=== PATIENT | male | born 1965 | race Two or more races ===

== ENCOUNTER 2019-07-03 13:10 | Inpatient (IN) | payer OTHER ==
[2019-07-03 14:31] VITALS: BMI 27.0
--- NOTE | 2019-07-03 15:44 | HP ---
CIWA Score Nausea/Vomitin-No Nausea/No Vomiting Muscle Tremors: 5 Anxiety: 2 Agitation: 0-Normal Activity Paroxysmal Sweats: 2 Orientation: 0-Oriented Tacttile Disturbances: 2-Mild Itch/Numbness/Burn Auditory Disturbances: 0-None Visual Disturbances: 1-Very Mild Sensitivity Headache: 1-Very Mild CIWA-Ar Total Score: 13 - Admission Criteria OASAS Guidelines: Admission for Medically Managed Detox: Requires at least one of the followin. CIWA greater than 12 2. Seizures within the past 24 hours 3. Delirium tremens within the past 24 hours 4. Hallucinations within the past 24 hours 5. Acute intervention needed for co occurring medical disorder 6. Acute intervention needed for co occurring psychiatric disorder 7. Severe withdrawal that cannot be handled at a lower level of care (continued vomiting, continued diarrhea, abnormal vital signs) requiring intravenous medication and/or fluids 8. Patient presents the following: CIWA greater than 12 Admission Criteria Met: Admission criteria met Admission ROS S - [facility] Chief Complaint: alcohol withdrawal symptoms Allergies/Adverse Reactions: Allergies Allergy/AdvReac Type Severity Reaction Status Date / Time No Known Allergies Allergy Verified 07/03/19 14:05 History of Present Illness: Patient is 53 yo male arab speaking, is here for inpatient alcohol detox d/t JOSEE c/o of hand tremors, referred from [facility] after evaluated today for chest pain with negative chest x-ray and troponin. Patient reports hx of HTN, DM II, HDL, GERD, RLE neuropathy. Psyhc: Denies. Exam Limitations: No Limitations - Ebola screening Have you traveled outside of the country in the last 21 days: No Have you had contact with anyone from an Ebola affected area: No Do you have a fever: No - Review of Systems Constitutional: Chills, Loss of Appetite, Changes in sleep, Weakness EENT: reports: No Symptoms Reported Respiratory: reports: No Symptoms reported Cardiac: reports: No Symptoms Reported GI: reports: Poor Appetite, Poor Fluid Intake, Indigestion : reports: No Symptoms Reported Musculoskeletal: reports: No Symptoms Reported Integumentary: reports: No Symptoms Reported Neuro: reports: Numbness (Right Lower extremity chronic), Dizziness Endocrine: reports: No Symptoms Reported Hematology: reports: No Symptoms Reported Psychiatric: reports: Orientated x3, Anxious Other Systems: Reviewed and Negative Patient History - Patient Medical History Hx Anemia: No Hx Asthma: No Hx Chronic Obstructive Pulmonary Disease (COPD): No Hx Cancer: No Hx Cardiac Disorders: Yes (hx of Chest pain last eval 07/03/19) Hx Congestive Heart Failure: No Hx Hypertension: Yes Hx Hypercholesterolemia: Yes Hx Pacemaker: No HX Cerebrovascular Accident: No Hx Seizures: No Hx Dementia: No Hx Diabetes: Yes Hx Gastrointestinal Disorders: Yes (GERD) Hx Liver Disease: No Hx Genitourinary Disorders: No Hx Sexually Transmitted Disorders: No Hx Renal Disease (ESRD): No Hx Thyroid Disease: No Hx Human Immunodeficiency Virus (HIV): No Hx Hepatitis C: No Hx Depression: No Hx Suicide Attempt: No Hx Bipolar Disorder: No Hx Schizophrenia: No - Patient Surgical History Past Surgical History: No - PPD History Previous Implant?: No (Negative Chest X-ray [facility] 07/03/19) Documented Results: Negative w/o proof PPD to be Administered?: No - Smoking Cessation Smoking history: Never smoked Have you smoked in the past 12 months: No Hx Chewing Tobacco Use: No Initiated information on smoking cessation: No - Substance & Tx. History Hx Alcohol Use: Yes Hx Substance Use: Yes Substance Use Type: Alcohol Hx Substance Use Treatment: No - Substances abused Alcohol Substance route: Oral Frequency: Daily Amount used: 4 - 6 shots whiskey Age of first use: 20 Date of last use: 07/02/19 Family Disease History - Family Disease History Family History: Unable to Obtain Admission Physical Exam BHS - Vital Signs Vital Signs: Vital Signs - 24 hr 07/03/19 07/03/19 14:08 15:07 Temperature 98.9 F 98.9 F Pulse Rate 104 H 104 H Respiratory 18 18 Rate Blood Pressure 188/121 H 188/121 H - Physical General Appearance: Yes: Appropriately Dressed, Moderate Distress, Alcohol on Breath, Tremorous, Sweating HEENTM: Yes: EOMI, Hearing grossly Normal, Normal ENT Inspection, Normocephalic , Normal Voice, CLARISSE, Pharynx Normal, Tm's normal Respiratory: Yes: Chest Non-Tender, Lungs Clear, Normal Breath Sounds, No Respiratory Distress, No Accessory Muscle Use Neck: Yes: Within Normal Limits Breast: Yes: Breast Exam Deferred Cardiology: Yes: Regular Rhythm, Tachycardia Abdominal: Yes: Normal Bowel Sounds, Non Tender, Flat, Soft Genitourinary: Yes: Within Normal Limits Back: Yes: Normal Inspection Musculoskeletal: Yes: Within Normal Limits Extremities: Yes: Normal Capillary Refill, Normal Inspection, Normal Range of Motion, Non-Tender Neurological: Yes: lubricating engineer II-XII NML intact, Fully Oriented, Alert, Motor Strength 5/5 Integumentary: Yes: Normal Color, Dry, Warm, Diaphoresis Lymphatic: Yes: Within Normal Limits - Diagnostic (1) Alcohol dependence with uncomplicated withdrawal Current Visit: Yes Status: Acute (2) Diabetes mellitus treated with insulin Current Visit: Yes Status: Chronic (3) Essential (primary) hypertension Current Visit: Yes Status: Chronic (4) Gastro-esophageal reflux disease without esophagitis Current Visit: Yes Status: Chronic (5) Neuropathy Current Visit: Yes Status: Chronic Cleared for Admission S - Detox or Rehab S Level of Care: Medically Managed Detox Regimen/Protocol: Librium Breathalyzer - Breathalyzer Breathalyzer: 0.022 Urine Drug Screen - Test Device Lot number: [id number] Expiration date: 03/25/21 - Control Is test valid?: Yes - Results Drug screen NEGATIVE: Yes Inpatient Rehab Admission - Rehab Decision to Admit Inpatient rehab admission?: No
[2019-07-03] MEDS ORDERED: MAG HYDROX/AL HYDROX/SIMETH 30 ML UNIT-DOSE CUP PO PRN (15:58)
[2019-07-03] MEDS ORDERED: MAGNESIUM HYDROX 2400MG/30ML ORAL SUSPENSION 30 ML CUP PO PRN (15:58)
[2019-07-03] MEDS ORDERED: IBUPROFEN 400 MG TABLET (FP) PO PRN (15:58)
[2019-07-03] MEDS ORDERED: MENTHOL/PHENOL 1 EACH UD MM PRN (15:58)
[2019-07-03] MEDS ORDERED: BACLOFEN 10 MG TABLET (FP) PO PRN (15:58)
[2019-07-03] MEDS ORDERED: BISMUTH SUBSALICYLATE 524 MG/30 ML UD PO PRN (15:58)
[2019-07-03] MEDS ORDERED: MAGNESIUM CITRATE 300 ML BOTTLE PO PRN (15:58)
[2019-07-03] MEDS ORDERED: INSULIN SLIDING SCALE (NOVOLOG) 1 VIAL SQ SCH (16:30)
[2019-07-03] MEDS: chlordiazePOXIDE HCL 25 MG CAPSULE PO SCH ×2 (17:31→22:37)
[2019-07-03] MEDS: INSULIN SLIDING SCALE (NOVOLOG) 1 VIAL SQ SCH (17:34)
[2019-07-03] MEDS ORDERED: cloNIDine HCL 0.1 MG TABLET PO ONE (18:00)
[2019-07-03] MEDS: chlordiazePOXIDE HCL 25 MG CAPSULE PO PRN (21:00)
[2019-07-03] MEDS: THIAMINE HCL 100 MG TABLET (FP) PO SCH (22:38)
[2019-07-03] MEDS: INSULIN (LEVEMIR) 100 UNITS/ML UNITS SQ SCH (22:40)
[2019-07-04] MEDS: chlordiazePOXIDE HCL 25 MG CAPSULE PO SCH ×4 (06:20→23:07)
[2019-07-04] MEDS: INSULIN SLIDING SCALE (NOVOLOG) 1 VIAL SQ SCH ×3 (08:03→17:11)
--- NOTE | 2019-07-04 09:50 | PN ---
S CIWA - CIWA Score Nausea/Vomitin-No Nausea/No Vomiting Muscle Tremors: 3 Anxiety: 1-Mildly Anxious Agitation: 1-Slight > Activity Paroxysmal Sweats: No Perspiration Orientation: 0-Oriented Tacttile Disturbances: 1-Very Mild Itch/Numbness Auditory Disturbances: 0-None Visual Disturbances: 0-None Headache: 0-None Present CIWA-Ar Total Score: 6 BHS Progress Note (SOAP) Subjective: Patient seen in bed still quite sleepy. Patient had no requests and felt well and slept well. Objective: 07/04/19 09:49 Vitals: BP: 138/82 P: 80/min R:18/min T98.6F Laboratory 07/03/19 07/03/19 07/04/19 15:54 22:34 06:56 POC Glucometer 264 UNITS UNITS 295 UNITS UNITS 82 UNITS UNITS (80-120) (80-120) (80-120) 07/04/19 09:50 Other labs pending results. Assessment: 07/04/19 09:51 1. Alcohol withdrawal 2. Diabetes Plan: 1. Alcohol withdrawals : Feeling quite well despite initial phases of detox protocol. Continue detox 2. DM: Early finger stick glucoses were high but now normalizing. Continue to monitor and do coverage. Dr. Aguirre
[2019-07-04] MEDS: LOSARTAN POTASSIUM 50 MG TABLET (FP) PO SCH (10:24)
[2019-07-04] MEDS: PRENATAL VITAMINS W/ FOLIC ACID TABLET (FP) PO SCH (10:24)
[2019-07-04] MEDS: ASPIRIN 81 MG CHEWABLE TABLETS PO SCH (10:24)
[2019-07-04] MEDS: PANTOPRAZOLE 40 MG TABLET (FP) PO SCH (10:25)
[2019-07-04 10:50] LABS: HEMATOCRIT 31.9 % (35.4-49); MCH 34.7 pg (25.7-33.7); MCHC 34.4 g/dl (32.0-35.9); MEAN CELL VOLUME 100.8 fl (80-96); MEAN PLT VOLUME 7.3 fl (7.5-11.1); PLATELET COUNT 188 K/MM3 (134-434); RBC 3.16 M/mm3 (4.00-5.60); RDW 14.6 % (11.9-15.9); WHITE BLOOD COUNT 4.1 K/mm3 (4.0-10.0)
[2019-07-04 11:10] LABS: ALBUMIN 3.8 g/dl (3.4-5.0); BILIRUBIN,TOTAL 1.1 mg/dL (0.2-1); BLOOD UREA NITROGEN 7.1 mg/dL (7-18); CALCIUM 8.6 mg/dL (8.5-10.1); CREATININE 1.1 mg/dL (0.55-1.3); POTASSIUM 3.9 mmol/L (3.5-5.1)
--- NOTE | 2019-07-04 13:47 | EKG ---
Test Reason : Blood Pressure : / mmHG Vent. Rate : 088 BPM Atrial Rate : 088 BPM P-R Int : 134 ms QRS Dur : 088 ms QT Int : 372 ms P-R-T Axes : 043 017 027 degrees QTc Int : 450 ms NORMAL SINUS RHYTHM NO PREVIOUS ECGS AVAILABLE Confirmed by SHANDA BONNER MD ([id number]) on 07/04/2019 1:46:58 PM Referred By: Confirmed By:SHANDA BONNER MD
[2019-07-04] MEDS ORDERED: INSULIN SLIDING SCALE (NOVOLOG) 1 VIAL SQ ONE (17:14)
[2019-07-04] MEDS: chlordiazePOXIDE HCL 25 MG CAPSULE PO PRN (20:06)
[2019-07-04] MEDS ORDERED: cloNIDine HCL 0.1 MG TABLET PO ONE (20:10)
[2019-07-04] MEDS: THIAMINE HCL 100 MG TABLET (FP) PO SCH (23:07)
[2019-07-04] MEDS: MELATONIN 5 MG TABLETS PO PRN (23:07)
[2019-07-04] MEDS: INSULIN (LEVEMIR) 100 UNITS/ML UNITS SQ SCH (23:08)
[2019-07-05] MEDS: chlordiazePOXIDE HCL 25 MG CAPSULE PO SCH ×4 (05:57→23:23)
[2019-07-05] MEDS: INSULIN SLIDING SCALE (NOVOLOG) 1 VIAL SQ SCH ×3 (06:59→17:09)
[2019-07-05] MEDS: PRENATAL VITAMINS W/ FOLIC ACID TABLET (FP) PO SCH (11:04)
[2019-07-05] MEDS: ASPIRIN 81 MG CHEWABLE TABLETS PO SCH (11:04)
[2019-07-05] MEDS: FERROUS GLUCONATE 324 MG TAB (FP) PO SCH ×2 (11:05→18:30)
[2019-07-05] MEDS: LOSARTAN POTASSIUM 50 MG TABLET (FP) PO SCH (11:05)
[2019-07-05] MEDS: PANTOPRAZOLE 40 MG TABLET (FP) PO SCH (11:05)
--- NOTE | 2019-07-05 12:53 | PN ---
S CIWA - CIWA Score Nausea/Vomitin-No Nausea/No Vomiting Muscle Tremors: 2 Anxiety: 1-Mildly Anxious Agitation: 1-Slight > Activity Paroxysmal Sweats: 1-Minimal Palms Moist Orientation: 0-Oriented Tacttile Disturbances: 0-None Auditory Disturbances: 0-None Visual Disturbances: 0-None Headache: 0-None Present CIWA-Ar Total Score: 5 BHS Progress Note (SOAP) Subjective: little anxiety Objective: 07/05/19 12:52 Vital Signs Temperature 97.9 F 07/05/19 09:27 Pulse Rate 95 H 07/05/19 09:27 Respiratory Rate 18 07/05/19 09:27 Blood Pressure 142/95 07/05/19 09:27 O2 Sat by Pulse Oximetry (%) Laboratory Tests 07/03/19 07/03/19 07/04/19 15:54 22:34 06:56 WBC RBC Hgb Hct MCV MCH MCHC RDW Plt Count MPV Sodium Potassium Chloride Carbon Dioxide Anion Gap BUN Creatinine Est GFR (CKD-EPI)Af Est GFR (CKD-EPI)NonAf POC Glucometer [phone] Random Glucose Calcium Total Bilirubin AST ALT Alkaline Phosphatase Total Protein Albumin RPR Titer 07/04/19 07/04/19 07/04/19 07:00 07:00 07:00 WBC 4.1 RBC 3.16 L Hgb 11.0 L Hct 31.9 L MCV 100.8 H MCH 34.7 H MCHC 34.4 RDW 14.6 Plt Count 188 MPV 7.3 L Sodium 138 Potassium 3.9 Chloride 100 Carbon Dioxide 30 Anion Gap 8 BUN 7.1 Creatinine 1.1 Est GFR (CKD-EPI)AfAm 89.61 Est GFR (CKD-EPI)NonAf 77.32 POC Glucometer Random Glucose 101 Calcium 8.6 Total Bilirubin 1.1 H AST 184 H ALT 67 H Alkaline Phosphatase 121 H Total Protein 7.0 Albumin 3.8 RPR Titer Nonreactive 07/04/19 07/04/19 07/04/19 11:26 16:51 23:06 WBC RBC Hgb Hct MCV MCH MCHC RDW Plt Count MPV Sodium Potassium Chloride Carbon Dioxide Anion Gap BUN Creatinine Est GFR (CKD-EPI)AfAm Est GFR (CKD-EPI)NonAf POC Glucometer [phone] Random Glucose Calcium Total Bilirubin AST ALT Alkaline Phosphatase Total Protein Albumin RPR Titer 07/05/19 05:55 WBC RBC Hgb Hct MCV MCH MCHC RDW Plt Count MPV Sodium Potassium Chloride Carbon Dioxide Anion Gap BUN Creatinine Est GFR (CKD-EPI)AfAm Est GFR (CKD-EPI)NonAf POC Glucometer 192 Random Glucose Calcium Total Bilirubin AST ALT Alkaline Phosphatase Total Protein Albumin RPR Titer labs noted aaox3 ambulating no acute distress Assessment: 07/05/19 12:52 mild withdrawal Plan: continue detox increase fluids
[2019-07-05] MEDS ORDERED: cloNIDine HCL 0.1 MG TABLET PO PRN (21:15)
[2019-07-05] MEDS: INSULIN (LEVEMIR) 100 UNITS/ML UNITS SQ SCH (23:23)
[2019-07-05] MEDS: THIAMINE HCL 100 MG TABLET (FP) PO SCH (23:23)
[2019-07-05] MEDS: MELATONIN 5 MG TABLETS PO PRN (23:26)
[2019-07-06] MEDS ORDERED: chlordiazePOXIDE HCL 10 MG CAPSULE PO PRN
[2019-07-06] MEDS: chlordiazePOXIDE HCL 10 MG CAPSULE PO SCH ×4 (05:59→22:12)
[2019-07-06] MEDS: INSULIN SLIDING SCALE (NOVOLOG) 1 VIAL SQ SCH ×3 (07:08→18:02)
[2019-07-06] MEDS: FERROUS GLUCONATE 324 MG TAB (FP) PO SCH ×3 (09:05→18:02)
[2019-07-06] MEDS: PANTOPRAZOLE 40 MG TABLET (FP) PO SCH (11:19)
[2019-07-06] MEDS: LOSARTAN POTASSIUM 50 MG TABLET (FP) PO SCH (11:19)
[2019-07-06] MEDS: PRENATAL VITAMINS W/ FOLIC ACID TABLET (FP) PO SCH (11:19)
[2019-07-06] MEDS: ASPIRIN 81 MG CHEWABLE TABLETS PO SCH (11:19)
--- NOTE | 2019-07-06 14:30 | PN ---
[facility] CIWA - CIWA Score Nausea/Vomitin-No Nausea/No Vomiting Muscle Tremors: 2 Anxiety: 3 Agitation: 3 Paroxysmal Sweats: 2 Orientation: 0-Oriented Tacttile Disturbances: 0-None Auditory Disturbances: 0-None Visual Disturbances: 0-None Headache: 0-None Present CIWA-Ar Total Score: 10 S Progress Note (SOAP) Subjective: Chills, interrupted sleep, anxious Objective: 07/06/19 14:26 Last Vital Signs Temp Pulse Resp BP Pulse Ox 97.3 F L 106 H 19 149/91 07/06/19 13:35 07/06/19 13:35 07/06/19 13:35 07/06/19 13:35 Elevated b/p (has htn, on med) Laboratory Tests 07/03/19 07/03/19 07/04/19 15:54 22:34 06:56 WBC RBC Hgb Hct MCV MCH MCHC RDW Plt Count MPV Sodium Potassium Chloride Carbon Dioxide Anion Gap BUN Creatinine Est GFR (CKD-EPI)AfAm Est GFR (CKD-EPI)NonAf POC Glucometer [phone] Random Glucose Calcium Total Bilirubin AST ALT Alkaline Phosphatase Total Protein Albumin RPR Titer 07/04/19 07/04/19 07/04/19 07:00 07:00 07:00 WBC 4.1 RBC 3.16 L Hgb 11.0 L Hct 31.9 L MCV 100.8 H MCH 34.7 H MCHC 34.4 RDW 14.6 Plt Count 188 MPV 7.3 L Sodium 138 Potassium 3.9 Chloride 100 Carbon Dioxide 30 Anion Gap 8 BUN 7.1 Creatinine 1.1 Est GFR (CKD-EPI)AfAm 89.61 Est GFR (CKD-EPI)NonAf 77.32 POC Glucometer Random Glucose 101 Calcium 8.6 Total Bilirubin 1.1 H AST 184 H ALT 67 H Alkaline Phosphatase 121 H Total Protein 7.0 Albumin 3.8 RPR Titer Nonreactive 07/04/19 07/04/19 07/04/19 11:26 16:51 23:06 WBC RBC Hgb Hct MCV MCH MCHC RDW Plt Count MPV Sodium Potassium Chloride Carbon Dioxide Anion Gap BUN Creatinine Est GFR (CKD-EPI)AfAm Est GFR (CKD-EPI)NonAf POC Glucometer [phone] Random Glucose Calcium Total Bilirubin AST ALT Alkaline Phosphatase Total Protein Albumin RPR Titer 07/05/19 07/05/19 07/05/19 05:55 16:52 21:55 WBC RBC Hgb Hct MCV MCH MCHC RDW Plt Count MPV Sodium Potassium Chloride Carbon Dioxide Anion Gap BUN Creatinine Est GFR (CKD-EPI)AfAm Est GFR (CKD-EPI)NonAf POC Glucometer [phone] Random Glucose Calcium Total Bilirubin AST ALT Alkaline Phosphatase Total Protein Albumin RPR Titer 07/06/19 06:00 WBC RBC Hgb Hct MCV MCH MCHC RDW Plt Count MPV Sodium Potassium Chloride Carbon Dioxide Anion Gap BUN Creatinine Est GFR (CKD-EPI)AfAm Est GFR (CKD-EPI)NonAf POC Glucometer 117 Random Glucose Calcium Total Bilirubin AST ALT Alkaline Phosphatase Total Protein Albumin RPR Titer Labs reviewed: elevated LFTs and glucose Assessment: 07/06/19 14:27 Withdrawal sxs Noted with uncontrolled htn, elevated LFTs and glucose Plan: Continue detox Encouraged PO water hydration Uncontrolled htn: educated on low sodium diet and to avoid adding salt to his food, monitor b/p, continue losartan 50mg daily, resume metoprolol tartrate 25mg PO bid (home medication), d/c prn clonidine. Elevated LFTs: repeat LFTs Hyperglycemia secondary to DM: continue diabetic regimen, increase levemir to 35 units sq qhs (home dose) Delivery Sales Worker contacted patient's pharmacy to verify home medications as per patient's request (verbal consent from patient); patient stated his pharmacy is located off [facility] and gave marketing copywriter tel #s, /[phone] Delivery Sales Worker called pharmacy at [phone] and was told the name of pharmacy is [facility] and that patient takes medication as listed: Losartan 50mg PO daily Metoprolol tartrate 25mg PO bid Atorvastatin 40mg PO qhs ASA 81mg PO daily Levemir flex touch 35 units sq qhs Vitamin D 50, 000 units weekly with 5 refills FESO4 325mg PO bid
[2019-07-06] MEDS ORDERED: INSULIN SLIDING SCALE (NOVOLOG) 1 VIAL SQ ONE (17:41)
[2019-07-06] MEDS: METOPROLOL TARTRATE 25 MG TABLET (FP) PO SCH (22:11)
[2019-07-06] MEDS: ATORVASTATIN CA 40 MG TABLET (FP) PO SCH (22:11)
[2019-07-06] MEDS: INSULIN (LEVEMIR) 100 UNITS/ML UNITS SQ SCH (22:14)
[2019-07-06] MEDS: MELATONIN 5 MG TABLETS PO PRN (22:26)
[2019-07-06] MEDS: THIAMINE HCL 100 MG TABLET (FP) PO SCH (23:00)
[2019-07-07] MEDS: chlordiazePOXIDE HCL 10 MG CAPSULE PO SCH ×2 (05:52→17:36)
[2019-07-07] MEDS: INSULIN SLIDING SCALE (NOVOLOG) 1 VIAL SQ SCH ×3 (07:53→16:48)
[2019-07-07] MEDS: PANTOPRAZOLE 40 MG TABLET (FP) PO SCH (10:26)
[2019-07-07] MEDS: ASPIRIN 81 MG CHEWABLE TABLETS PO SCH (10:26)
[2019-07-07] MEDS: LOSARTAN POTASSIUM 50 MG TABLET (FP) PO SCH (10:26)
[2019-07-07] MEDS: PRENATAL VITAMINS W/ FOLIC ACID TABLET (FP) PO SCH (10:26)
[2019-07-07 10:32] LABS: ALBUMIN 3.4 g/dl (3.4-5.0); BILIRUBIN,DIRECT 0.4 mg/dL (0.0-0.2); BILIRUBIN,TOTAL 0.6 mg/dL (0.2-1); TOT PROT 6.5 g/dl (6.4-8.2)
[2019-07-07] MEDS: METOPROLOL TARTRATE 25 MG TABLET (FP) PO SCH ×2 (11:30→22:25)
[2019-07-07] MEDS: FERROUS GLUCONATE 324 MG TAB (FP) PO SCH ×3 (12:43→17:36)
--- NOTE | 2019-07-07 15:54 | PN ---
S CIWA - CIWA Score Nausea/Vomitin-No Nausea/No Vomiting Muscle Tremors: 2 (Chills) Anxiety: 3 Agitation: 0-Normal Activity Paroxysmal Sweats: 1-Minimal Palms Moist Orientation: 0-Oriented Tacttile Disturbances: 3-Moderate Itch/Numb/Burn Auditory Disturbances: 0-None Visual Disturbances: 0-None Headache: 0-None Present CIWA-Ar Total Score: 9 BHS Progress Note (SOAP) Subjective: Chills, Anxious. Objective: PATIENT A & O X 3. IN NO ACUTE DISTRESS. 07/07/19 15:51 Vital Signs Temperature 97.5 F L 07/07/19 14:01 Pulse Rate 93 H 07/07/19 14:01 Respiratory Rate 18 07/07/19 14:01 Blood Pressure 146/88 07/07/19 14:01 O2 Sat by Pulse Oximetry (%) Laboratory Tests 07/03/19 07/03/19 07/04/19 15:54 22:34 06:56 WBC RBC Hgb Hct MCV MCH MCHC RDW Plt Count MPV Sodium Potassium Chloride Carbon Dioxide Anion Gap BUN Creatinine Est GFR (CKD-EPI)AfAm Est GFR (CKD-EPI)NonAf POC Glucometer [phone] 82 Random Glucose Calcium Total Bilirubin Direct Bilirubin AST ALT Alkaline Phosphatase Total Protein Albumin RPR Titer 07/04/19 07/04/19 07/04/19 07:00 07:00 07:00 WBC 4.1 RBC 3.16 L Hgb 11.0 L Hct 31.9 L MCV 100.8 H MCH 34.7 H MCHC 34.4 RDW 14.6 Plt Count 188 MPV 7.3 L Sodium 138 Potassium 3.9 Chloride 100 Carbon Dioxide 30 Anion Gap 8 BUN 7.1 Creatinine 1.1 Est GFR (CKD-EPI)AfAm 89.61 Est GFR (CKD-EPI)NonAf 77.32 POC Glucometer Random Glucose 101 Calcium 8.6 Total Bilirubin 1.1 H Direct Bilirubin AST 184 H ALT 67 H Alkaline Phosphatase 121 H Total Protein 7.0 Albumin 3.8 RPR Titer Nonreactive 07/04/19 07/04/19 07/04/19 11:26 16:51 23:06 WBC RBC Hgb Hct MCV MCH MCHC RDW Plt Count MPV Sodium Potassium Chloride Carbon Dioxide Anion Gap BUN Creatinine Est GFR (CKD-EPI)AfAm Est GFR (CKD-EPI)NonAf POC Glucometer [phone] Random Glucose Calcium Total Bilirubin Direct Bilirubin AST ALT Alkaline Phosphatase Total Protein Albumin RPR Titer 07/05/19 07/05/19 07/05/19 05:55 16:52 21:55 WBC RBC Hgb Hct MCV MCH MCHC RDW Plt Count MPV Sodium Potassium Chloride Carbon Dioxide Anion Gap BUN Creatinine Est GFR (CKD-EPI)AfAm Est GFR (CKD-EPI)NonAf POC Glucometer [phone] Random Glucose Calcium Total Bilirubin Direct Bilirubin AST ALT Alkaline Phosphatase Total Protein Albumin RPR Titer 07/06/19 07/06/19 07/06/19 06:00 17:06 22:21 WBC RBC Hgb Hct MCV MCH MCHC RDW Plt Count MPV Sodium Potassium Chloride Carbon Dioxide Anion Gap BUN Creatinine Est GFR (CKD-EPI)AfAm Est GFR (CKD-EPI)NonAf POC Glucometer [phone] Random Glucose Calcium Total Bilirubin Direct Bilirubin AST ALT Alkaline Phosphatase Total Protein Albumin RPR Titer 07/07/19 07/07/19 07/07/19 05:50 07:00 10:22 WBC RBC Hgb Hct MCV MCH MCHC RDW Plt Count MPV Sodium Potassium Chloride Carbon Dioxide Anion Gap BUN Creatinine Est GFR (CKD-EPI)AfAm Est GFR (CKD-EPI)NonAf POC Glucometer 266 204 Random Glucose Calcium Total Bilirubin 0.6 Direct Bilirubin 0.4 H AST 102 H ALT 53 Alkaline Phosphatase 144 H Total Protein 6.5 Albumin 3.4 RPR Titer LABS NOTED. RESULTS OF HEPATIC FUNCTION PANEL NOTED. MILD REDUCTION IN AST LEVEL NOTED. REDUCTION IN ALT LEVEL NOTED SO THAT LEVEL NOW WITHIN NORMAL RANGE. MODERATE INCREASE NOTED IN ALKALINE PHOSPHATASE LEVEL NOTED. REDUCTION IN TOTAL BILIRUBIN LEVEL NOTED SO THAT LEVEL NOW WITHIN NORMAL RANGE. 07/07/19 15:54 Assessment: 07/07/19 15:57 WITHDRAWAL SYMPTOMS. ELEVATED LIVER ENZYMES. ANEMIA. Plan: CONTINUE DETOX. PATIENT IS CURRENTLY RECEIVING DAILY MVI CONTAINING B VITAMINS AND IRON WHILE ADMITTED FOR DETOX. PATIENT SCHEDULED FOR D/C FROM DETOX UNIT TOMORROW.
[2019-07-07] MEDS ORDERED: INSULIN SLIDING SCALE (NOVOLOG) 1 VIAL SQ ONE (16:40)
[2019-07-07] MEDS: MELATONIN 5 MG TABLETS PO PRN (22:25)
[2019-07-07] MEDS: ATORVASTATIN CA 40 MG TABLET (FP) PO SCH (22:25)
[2019-07-07] MEDS: THIAMINE HCL 100 MG TABLET (FP) PO SCH (22:25)
[2019-07-07] MEDS: INSULIN (LEVEMIR) 100 UNITS/ML UNITS SQ SCH (22:33)
[2019-07-08] MEDS ORDERED: chlordiazePOXIDE HCL 10 MG CAPSULE PO ONE (05:00)
[2019-07-08] MEDS ORDERED: INSULIN SLIDING SCALE (NOVOLOG) 1 VIAL SQ ONE (07:04)
[2019-07-08] MEDS: INSULIN SLIDING SCALE (NOVOLOG) 1 VIAL SQ SCH (07:05)
[2019-07-08 07:15] VITALS: TEMP 98.1
--- NOTE | 2019-07-08 08:51 | DS ---
[facility] Detox Discharge Summary Admission Date: 07/03/19 Discharge Date: 07/08/19 - History Present History: Alcohol Dependence - Physical Exam Results Vital Signs: Vital Signs Temperature 98.1 F 07/08/19 07:14 Pulse Rate 75 07/08/19 07:14 Respiratory Rate 18 07/08/19 07:14 Blood Pressure 140/74 07/08/19 07:14 O2 Sat by Pulse Oximetry (%) Pertinent Admission Physical Exam Findings: pt arrived in [facility] Laboratory Tests 07/03/19 07/03/19 07/04/19 15:54 22:34 06:56 WBC RBC Hgb Hct MCV MCH MCHC RDW Plt Count MPV Sodium Potassium Chloride Carbon Dioxide Anion Gap BUN Creatinine Est GFR (CKD-EPI)AfAm Est GFR (CKD-EPI)NonAf POC Glucometer [phone] 82 Random Glucose Calcium Total Bilirubin Direct Bilirubin AST ALT Alkaline Phosphatase Total Protein Albumin RPR Titer 07/04/19 07/04/19 07/04/19 07:00 07:00 07:00 WBC 4.1 RBC 3.16 L Hgb 11.0 L Hct 31.9 L MCV 100.8 H MCH 34.7 H MCHC 34.4 RDW 14.6 Plt Count 188 MPV 7.3 L Sodium 138 Potassium 3.9 Chloride 100 Carbon Dioxide 30 Anion Gap 8 BUN 7.1 Creatinine 1.1 Est GFR (CKD-EPI)AfAm 89.61 Est GFR (CKD-EPI)NonAf 77.32 POC Glucometer Random Glucose 101 Calcium 8.6 Total Bilirubin 1.1 H Direct Bilirubin AST 184 H ALT 67 H Alkaline Phosphatase 121 H Total Protein 7.0 Albumin 3.8 RPR Titer Nonreactive 07/04/19 07/04/19 07/04/19 11:26 16:51 23:06 WBC RBC Hgb Hct MCV MCH MCHC RDW Plt Count MPV Sodium Potassium Chloride Carbon Dioxide Anion Gap BUN Creatinine Est GFR (CKD-EPI)AfAm Est GFR (CKD-EPI)NonAf POC Glucometer [phone] Random Glucose Calcium Total Bilirubin Direct Bilirubin AST ALT Alkaline Phosphatase Total Protein Albumin RPR Titer 07/05/19 07/05/19 07/05/19 05:55 16:52 21:55 WBC RBC Hgb Hct MCV MCH MCHC RDW Plt Count MPV Sodium Potassium Chloride Carbon Dioxide Anion Gap BUN Creatinine Est GFR (CKD-EPI)AfAm Est GFR (CKD-EPI)NonAf POC Glucometer [phone] Random Glucose Calcium Total Bilirubin Direct Bilirubin AST ALT Alkaline Phosphatase Total Protein Albumin RPR Titer 07/06/19 07/06/19 07/06/19 06:00 17:06 22:21 WBC RBC Hgb Hct MCV MCH MCHC RDW Plt Count MPV Sodium Potassium Chloride Carbon Dioxide Anion Gap BUN Creatinine Est GFR (CKD-EPI)AfAm Est GFR (CKD-EPI)NonAf POC Glucometer [phone] Random Glucose Calcium Total Bilirubin Direct Bilirubin AST ALT Alkaline Phosphatase Total Protein Albumin RPR Titer 07/07/19 07/07/19 07/07/19 05:50 07:00 10:22 WBC RBC Hgb Hct MCV MCH MCHC RDW Plt Count MPV Sodium Potassium Chloride Carbon Dioxide Anion Gap BUN Creatinine Est GFR (CKD-EPI)AfAm Est GFR (CKD-EPI)NonAf POC Glucometer 266 204 Random Glucose Calcium Total Bilirubin 0.6 Direct Bilirubin 0.4 H AST 102 H ALT 53 Alkaline Phosphatase 144 H Total Protein 6.5 Albumin 3.4 RPR Titer 07/07/19 07/07/19 07/08/19 16:30 22:28 07:01 WBC RBC Hgb Hct MCV MCH MCHC RDW Plt Count MPV Sodium Potassium Chloride Carbon Dioxide Anion Gap BUN Creatinine Est GFR (CKD-EPI)AfAm Est GFR (CKD-EPI)NonAf POC Glucometer [phone] Random Glucose Calcium Total Bilirubin Direct Bilirubin AST ALT Alkaline Phosphatase Total Protein Albumin RPR Titer pt today is aaox3 ambulating no acute distress no s/s of withdrawals - Treatment Hospital Course: Detox Protocol Followed, Detoxed Safely, Responded well, Discharged Condition Good, Rehab Referral Accepted Patient has Accepted a Rehab Referral to: pt declined rehab; referral provided - Medication Discharge Medications: Ambulatory Orders Aspirin [ASA -] 81 mg PO DAILY 07/03/19 Fenofibrate 200 mg PO HS 07/03/19 Insulin (Levemir) [Levemir Vial] 34 unit SQ HS 07/03/19 Insulin (Novolog) [Novolog Vial] 15 units SQ DAILY 07/03/19 Losartan Potassium [Cozaar -] 50 mg PO DAILY 07/03/19 Multivitamin [Multiple Vitamins] 1 each PO DAILY 07/03/19 Pantoprazole Sodium [Protonix -] 40 mg PO DAILY 07/03/19 Unobtainable 07/03/19
[2019-07-08 09:32] VITALS: BP 151/88; PULSE 80
== END 2019-07-08 09:36 | disposition home or self-care (01) | DRG 775 ==
LOC: YASAS 13:10 → Y6N 16:24
PROVIDERS: ADMIT Surgery; ATTEND Surgery
PROC: HZ2ZZZZ Detoxification Services for Substance Abuse Treatment (ICD-10-PCS; principal; 2019-07-03)
DX: F10.230 Alcohol dependence with withdrawal, uncomplicated (principal); I10 Essential (primary) hypertension; D64.9 Anemia, unspecified; R94.5 Abnormal results of liver function studies; E11.65 Type 2 diabetes mellitus with hyperglycemia; K21.9 Gastro-esophageal reflux disease without esophagitis; R00.0 Tachycardia, unspecified; G62.9 Polyneuropathy, unspecified; Z79.4 Long term (current) use of insulin
CPT/HCPCS: 36415; 80053; 80076; 82962; 85027; 86593; 93005; 93010; J0735